=== PATIENT | female | born 1950 | race Hispanic/Latino ===

== ENCOUNTER → 2017-12-04 | Outpatient (CLI) | payer OTHER ==
[~2017-12-04] MED LIST: ACETAMINOPHEN325 M1 PO; AMLODIPINE BESYL5 MG PO; ASPIRIN EC81 MG PO; ATORVASTATIN CA20 MG PO; Atorvastatin PO; BUSPIRONE HCL5 MG PO; CALCIUM CARBON500 MG PO; CEFUROXIME250 MG PO; ESIDRIX25 MG PO; FAMOTIDINE20 MG PO; FUROSEMIDE40 MG PO; GABAPENTIN300 MG PO; HUMULIN N100 UNITS/ SQ; HUMULIN R100 UNIT/2 SQ; IBUPROFEN400 MG PO; IPRAT-ALBUT 0.5-3 ML NEB; LISINOPRIL10 MG PO; LOPERAMIDE2 MG PO; MEGESTROL ACETA40 MG PO; METFORMIN HCL500 MG PO; METOPROLOL SUCC50 MG PO; METOPROLOL TART25 MG PO; METOPROLOL TART50 MG PO; METRONIDAZOLE500 MG PO; MIRTAZAPINE15 MG PO; MUCINEX DM ER1 EACH PO; Multivitamins/Minerals PO; NYAMYC15 GM TOP; ONDANSETRON4 MG/2 M1 IV; PEPCID20 MG PO; PROBIOTIC & AC1 EACH PO; QUESTRAN PACKET4 GM PO; SODIUM BICARBO650 MG PO; THIAMINE HCL100 MG PO; TRIAMCINOLONE A15 G3 TP; TYLENOL WITH C1 EACH PO; VANCOCIN HCL250 MG PO; VENELEX OINTMEN60 GM TP; VITAMIN C500 M1 PO; ZINC SULFATE220 M1 PO; ZOFRAN ODT4 MG PO; ZYVOX600 MG PO
[2017-12-09 07:56] LABS: ALBUMIN 2.7 g/dL (3.5-5.0); ALBUMIN/GLOBULIN RATIO 0.5 (0.8-2.0); ANION GAP 15.7 mmol/L (8-16); CALCIUM 9.4 mg/dL (8.4-10.2); CREATININE, SERUM 1.67 mg/dL (0.57-1.11); POTASSIUM 3.7 mmol/L (3.5-5.1)
[2017-12-09 07:58] LABS: HEMOGLOBIN 10.4 g/dL (12.0-16.0); RED BLOOD COUNT 3.39 x10e6/uL (3.6-5.1)
[2017-12-09 07:59] LABS: BASOPHILS % 0.5 % (0.0-1.0); EOSINOPHILS % 3.4 % (0.0-6.0); HEMATOCRIT 31.5 % (34.2-44.1); LYMPHOCYTES % 32.3 % (18.0-39.1); MEAN CORPUSCULAR HEMOGLOBIN 30.7 pg (28-32); MEAN CORPUSCULAR VOLUME 92.9 fL (81-99); MONOCYTES % 6.7 % (4.4-11.3); NEUTROPHILS % 56.7 % (38.7-80.0); PLATELET COUNT 438 x10e3/uL (140-360); RED CELL DISTRIBUTION WIDTH 16.8 % (11.7-14.4)
[2017-12-09 08:00] LABS: BASOPHILS # (AUTO) 0.1 (0.0-0.1); EOSINOPHILS # (AUTO) 0.5 (0.0-0.4); LYMPHOCYTES # (AUTO) 4.7 (1.0-3.2); NEUTROPHILS # (AUTO) 8.2 (2.1-6.9)
[2017-12-09 17:18] LABS: ANION GAP 18.8 mmol/L (8-16); CALCIUM 10.2 mg/dL (8.4-10.2); CREATININE, SERUM 1.44 mg/dL (0.57-1.11); POTASSIUM 3.8 mmol/L (3.5-5.1)
== END ==
LOC: NPA 17:00
PROVIDERS: ATTEND Internal Medicine
DX: Z02.89 Encounter for other administrative examinations (principal)
CPT/HCPCS: 36415; 80048; 80053; 85025

== ENCOUNTER → 2017-12-09 | Outpatient (CLI) | payer OTHER ==
[2017-12-16 15:16] LABS: ANION GAP 19.7 mmol/L (8-16); CALCIUM 9.8 mg/dL (8.4-10.2); CREATININE, SERUM 1.46 mg/dL (0.57-1.11); POTASSIUM 4.7 mmol/L (3.5-5.1)
== END ==
LOC: NPA 15:00
PROVIDERS: ATTEND Internal Medicine
DX: Z02.89 Encounter for other administrative examinations (principal)
CPT/HCPCS: 36415; 80048

== ENCOUNTER → 2017-12-19 | Outpatient (CLI) | payer OTHER | LOC: NPA 11:30 | PROVIDERS: ATTEND Internal Medicine | DX: Z02.89 Encounter for other administrative examinations (principal) ==

== ENCOUNTER → 2017-12-23 | Outpatient (CLI) | payer OTHER ==
[2017-12-23 16:54] LABS: BASOPHILS % 0.3 % (0.0-1.0); EOSINOPHILS # (AUTO) 0.7 (0.0-0.4); EOSINOPHILS % 5.3 % (0.0-6.0); HEMATOCRIT 31.3 % (34.2-44.1); HEMOGLOBIN 10.6 g/dL (12.0-16.0); MEAN CORPUSCULAR HEMOGLOBIN 31.5 pg (28-32); MEAN CORPUSCULAR HGB CONC 33.9 g/dL (31-35); MEAN CORPUSCULAR VOLUME 92.9 fL (81-99); MONOCYTES # (AUTO) 0.8 (0.2-0.8); MONOCYTES % 6.8 % (4.4-11.3); NEUTROPHILS # (AUTO) 5.9 (2.1-6.9); NEUTROPHILS % 47.4 % (38.7-80.0); PLATELET COUNT 341 x10e3/uL (140-360); RED BLOOD COUNT 3.37 x10e6/uL (3.6-5.1); RED CELL DISTRIBUTION WIDTH 15.2 % (11.7-14.4)
[2017-12-23 16:55] LABS: ANION GAP 17.8 mmol/L (8-16); CALCIUM 9.5 mg/dL (8.4-10.2); CREATININE, SERUM 1.62 mg/dL (0.57-1.11); POTASSIUM 3.8 mmol/L (3.5-5.1)
== END ==
LOC: NPA 13:54
PROVIDERS: ATTEND Internal Medicine
DX: Z02.89 Encounter for other administrative examinations (principal)
CPT/HCPCS: 36415; 80048; 85025

== ENCOUNTER → 2017-12-26 | Outpatient (CLI) | payer OTHER | LOC: NPA 17:00 | PROVIDERS: ATTEND Internal Medicine | DX: Z02.89 Encounter for other administrative examinations (principal) ==

== ENCOUNTER → 2017-12-30 | Outpatient (CLI) | payer OTHER ==
[2017-12-30 15:59] LABS: ANION GAP 15.7 mmol/L (8-16); CALCIUM 9.4 mg/dL (8.4-10.2); CREATININE, SERUM 1.7 mg/dL (0.57-1.11); POTASSIUM 3.7 mmol/L (3.5-5.1)
[2017-12-30 16:03] LABS: BASOPHILS % 0.3 % (0.0-1.0); EOSINOPHILS # (AUTO) 0.4 (0.0-0.4); EOSINOPHILS % 3.7 % (0.0-6.0); HEMOGLOBIN 10.7 g/dL (12.0-16.0); LYMPHOCYTES # (AUTO) 4.2 (1.0-3.2); MEAN CORPUSCULAR HEMOGLOBIN 31.8 pg (28-32); MEAN CORPUSCULAR HGB CONC 34.5 g/dL (31-35); MEAN CORPUSCULAR VOLUME 92.3 fL (81-99); MONOCYTES # (AUTO) 0.6 (0.2-0.8); MONOCYTES % 5.1 % (4.4-11.3); NEUTROPHILS # (AUTO) 6.7 (2.1-6.9); NEUTROPHILS % 55.7 % (38.7-80.0); PLATELET COUNT 372 x10e3/uL (140-360); RED BLOOD COUNT 3.36 x10e6/uL (3.6-5.1); RED CELL DISTRIBUTION WIDTH 14.5 % (11.7-14.4)
== END ==
LOC: NPA 12:30
PROVIDERS: ATTEND Internal Medicine
DX: Z02.9 Encounter for administrative examinations, unspecified (principal)
CPT/HCPCS: 36415; 80048; 85025

== ENCOUNTER → 2018-01-01 | Outpatient (CLI) | payer OTHER | LOC: NPA 10:18 | PROVIDERS: ATTEND Internal Medicine | DX: Z02.89 Encounter for other administrative examinations (principal) | CPT/HCPCS: 87493 ==

== ENCOUNTER → 2018-01-06 | Outpatient (CLI) | payer OTHER ==
[~2018-01-06] MED LIST changes: +CLOTRIMAZOLE15 GM TOP; +LACTULOSE20 GM/30 M PO; +LEXAPRO10 MG PO; +NOVOLOG100 UNIT/1; +TRAZODONE HCL50 MG PO; +TRIAMCINOLONE A15 G1; +basaglar SC
[2018-01-06 17:37] LABS: ANION GAP 16.3 mmol/L (8-16); CALCIUM 9.5 mg/dL (8.4-10.2); CREATININE, SERUM 1.49 mg/dL (0.57-1.11); POTASSIUM 4.3 mmol/L (3.5-5.1)
[2018-01-06 17:39] LABS: BASOPHILS # (AUTO) 0.1 (0.0-0.1); BASOPHILS % 0.5 % (0.0-1.0); EOSINOPHILS # (AUTO) 0.7 (0.0-0.4); EOSINOPHILS % 5.2 % (0.0-6.0); HEMATOCRIT 31.9 % (34.2-44.1); HEMOGLOBIN 10.8 g/dL (12.0-16.0); LYMPHOCYTES # (AUTO) 5.6 (1.0-3.2); LYMPHOCYTES % 40.2 % (18.0-39.1); MEAN CORPUSCULAR HEMOGLOBIN 31.9 pg (28-32); MEAN CORPUSCULAR HGB CONC 33.9 g/dL (31-35); MEAN CORPUSCULAR VOLUME 94.1 fL (81-99); MONOCYTES # (AUTO) 0.8 (0.2-0.8); MONOCYTES % 5.5 % (4.4-11.3); NEUTROPHILS # (AUTO) 6.7 (2.1-6.9); NEUTROPHILS % 48.1 % (38.7-80.0); PLATELET COUNT 438 x10e3/uL (140-360); RED BLOOD COUNT 3.39 x10e6/uL (3.6-5.1); RED CELL DISTRIBUTION WIDTH 14.2 % (11.7-14.4)
== END ==
LOC: NPA 11:30
PROVIDERS: ATTEND Internal Medicine
DX: Z02.89 Encounter for other administrative examinations (principal)
CPT/HCPCS: 36415; 80048; 85025

== ENCOUNTER → 2018-01-10 | Outpatient (CLI) | payer OTHER ==
[2018-01-10 15:21] LABS: BILIRUBIN,URINE NEGATIVE (NEGATIVE); CLARITY,URINE CLOUDY (CLEAR); COLOR,URINE YELLOW (YELLOW); KETONES,URINE NEGATIVE (NEGATIVE); LEUKOCYTE ESTERASE ,URINE 2+ (NEGATIVE); PROTEIN,URINE DIPSTICK 3+ (NEGATIVE); URINE UROBILINOGEN 0.2 mg/dL (0.2 - 1)
[2018-01-10 15:22] LABS: NITRITE,URINE POSITIVE (NEGATIVE)
[2018-01-10 15:23] LABS: BACTERIA,URINE MANY /HPF; RBC,URINE 0-5 /HPF (0-5)
[2018-01-10 15:24] LABS: EPITHELIAL CELLS,URINE RARE /LPF
== END ==
LOC: NPA 11:22
PROVIDERS: ATTEND Internal Medicine
DX: Z02.89 Encounter for other administrative examinations (principal)
CPT/HCPCS: 81001; 87086; 87186

== ENCOUNTER 2018-01-13 12:45 | Inpatient (IN) | payer MEDICARE ==
[~2018-01-13] VITALS: Ht 157.5 cm; Wt 90.3 kg
[~2018-01-13 12:45] MED LIST changes: -CLOTRIMAZOLE15 GM TOP; -FLUCONAZOL100 MG/50 IV; -Insulin Detemir SQ; -LACTULOSE20 GM/30 M PO; -LEXAPRO10 MG PO; -MAXIPIME1 GM IV; -MUCINEX600 MG PO; -MULTI-VITAMIN1 EACH PO; -Methylprednisolone Sod Succ IV; -NOVOLOG100 UNIT/1; -OSCAL-D PO; -TRAZODONE HCL50 MG PO; -TRIAMCINOLONE A15 G1; -TYLENOL # 31 EA PO; -VANCOMYCIN1 GM/250 M IV; -basaglar SC
--- OUTSIDE RECORDS SUMMARY | 2018-01-13 12:48 | XMS REPORT ---
Author Author [facility] Address Unknown Phone Unavailable Care Team Providers Care Machine Zipper Trimmer Name Role Phone LUIS WOODRUFF Unavailable Unavailable DANIEL DEE Unavailable Unavailable FRANCY BROCK Unavailable Unavailable Problems This patient has no known problems. Allergies, Adverse Reactions, Alerts This patient has no known allergies or adverse reactions. Medications This patient has no known medications. Results Test Description Test Time Test Comments Text Results Atomic Results Result Comments IR CONSULT [place] [address] Patient Name: FANTA LONGORIA MR #: [id number] : 1950 Age/Sex: 67/F Req # : [id number] Adm Physician: LUIS WOODRUFF MD Ordered by: RBYAN COTO MD Report #: [id number] Location: [facility] Room/Bed: [place] [address] Procedure: [id number] DX/IR CONSULT Exam Date: Exam Time: REPORT STATUS: Signed PROCEDURE: ULTRASOUND GUIDANCE FOR PROCEDURE COMPARISON: None. INDICATIONS: Renal Biopsy For BONNIE PROCEDURE: Refer to conclusion CONCLUSION: Refer to "BIOPSY RENAL" also from 11/05/2017 for full dictated report. Dictated by: Aneesh Gonsalez M.D. on 11/05/2017 at 12:46 Electronically approved by: Aneesh Gonsalez M.D. on 11/05/2017 at 12:46 Dictated By: ANEESH GONSALEZ MD 1246 Transcribed By: MAN on 11/05/17 1246 COPY TO: BRYAN COTO MD BIOPSY RENAL [place] [address] Patient Name: FANTA LONGORIA MR #: [id number] : 1950 Age/Sex: 67/F Req # : [id number] [facility] Physician: LUIS WOODRUFF MD Ordered by: BRYAN COTO MD Report #: [id number] Location: [facility] Room/Bed: [place] [address] Procedure: [id number] IR/BIOPSY RENAL Exam Date: Exam Time: REPORT STATUS: Signed PROCEDURE: BIOPSY RENAL COMPARISON: None. INDICATIONS: Renal Biopsy For BONNIE Preprocedure diagnosis: Acute kidney injury Post procedure diagnosis: Acute kidney injury Camp Advisor: Aneesh Gonsalez M.D. Sedation/anesthesia: Fentanyl 25 mcg intravenous, Versed 0.5 mg intravenous. The patient's heart rate and pulse oximetry were continuously monitored by the interventional radiology nurse. Blood pressure was monitored at 5 minute intervals. Complications: No immediate Estimate blood loss: Less than 10 cc Blood products administered: None Implants/grafts: None Specimens: Core biopsy specimens x3 Condition at completion of procedure: Stable Disposition: Radiology holding area Procedure in detail: Informed consent was obtained from the patient and documented in the medical record after discussion of risks and benefits. The patient was placed in the prone position on the sonographic table. Preliminary sonographic evaluation confirmed a suitable percutaneous approach to the right kidney. The right flank was then prepped and draped in standard sterile fashion. 1% lidocaine was infiltrated into the skin and subcutaneous tissues for local anesthesia. Then under continuous sonographic guidance, a 16 gauge needle guide was advanced into the right interpolar renal cortex. Subsequently, a total of 3 biopsy specimens were obtained using an 18 gauge, 2 cm throw core biopsy apparatus, with hardware supplies sales representative sonographic images archived. Specimens were submitted to on- site pathology personnel and presence of glomeruli was confirmed in the first specimen prior to obtaining additional specimens. At the conclusion of sampling a small amount of Gelfoam slurry was injected at the renal capsule and in the subcutaneous tract for augmentation of hemostasis. Manual compression was held x3 minutes. Sonographic evaluation at the conclusion of the procedure showed no evidence of perinephric hematoma. CONCLUSION: Successful ultrasound guided core biopsies of the right renal cortex in the setting of acute kidney injury. Dictated by: Aneesh Gonsalez M.D. on 11/05/2017 at 12:45 Electronically approved by: Aneesh Gonsalez M.D. on 11/05/2017 at 12:45 Dictated By: ANEESH GONSALEZ MD 1245 Transcribed By: MAN on 11/05/17 1245 COPY TO: BRYAN COTO MD US GUIDANCE FOR PROCEDURE [place] [address] Patient Name: FANTA LONGORIA MR #: [id number] : 1950 Age/Sex: 67/F Req #: [id number] Adm Physician: LUIS WOODRUFF MD Ordered by: BRYAN COTO MD Report #: [id number] Location: [facility] Room/Bed: [place] [address] Procedure: [id number] US/US GUIDANCE FOR PROCEDURE Exam Date: Exam Time: REPORT STATUS: Signed PROCEDURE: ULTRASOUND GUIDANCE FOR PROCEDURE COMPARISON: None. INDICATIONS: Renal Biopsy For BONNIE PROCEDURE: Refer to conclusion CONCLUSION: Refer to "BIOPSY RENAL" also from 11/05/2017 for full dictated report. Dictated by: Aneesh Gonsalez M.D. on 11/05/2017 at 12:46 Electronically approved by: Aneesh Gonsalez M.D. on 11/05/2017 at 12:46 Dictated By: ANEESH GONSALEZ MD 1246 Transcribed By: MAN on 11/05/17 1246 COPY TO: BRYAN COTO MD CHEST SINGLE (PORTABLE) [place] [address] Patient Name: FANTA LONGORIA MR #: [id number] : 1950 Age/Sex: 67/F Req #: [id number] Adm Physician: LUIS WOODRUFF MD Ordered by: AWA MAYBERRY Report #: [id number] Location: [facility] Room/Bed: [place] [address] Procedure: [id number] DX/CHEST SINGLE (PORTABLE) Exam Date: 11/01/17 Exam Time: 1000 REPORT STATUS: Signed PROCEDURE: CHEST SINGLE (PORTABLE) TECHNIQUE: Portable AP chest INDICATION: Fever; C. difficile infection COMPARISON: [facility], DX, CHEST SINGLE (PORTABLE), 10/30/2017, 12:36. FINDINGS: Bilateral interstitial opacity without focal airspace disease. Enlarged cardiac silhouette and central vasculature. Tunneled right internal jugular dialysis catheter with tips in the right atrium. Intact skeleton. CONCLUSION: Cardiomegaly with pulmonary edema. Dictated by: Jordon Nieto M.D. on 11/01/2017 at 10:35 Electronically approved by: Jordon Nieto M.D. on 11/01/2017 at 10:35 Dictated By: JORDON NIETO MD 1035 Transcribed By: MAN on 11/01/17 1035 COPY TO: AWA MAYBERRY SPECIAL PROCEDURE IN PERSONALIZED LIVING ASSISTANT [place] [address] Patient Name: FANTA LONGORIA MR #: [id number] : 1950 Age/Sex: 67/F Req #: [id number] Adm Physician: LUIS WOODRUFF MD Ordered by: BETHANY AYALA MD Report #: [id number] Location: [facility] Room/Bed: [place] [address] Procedure: [id number] IR/SPECIAL PROCEDURE IN PERSONALIZED LIVING ASSISTANT Exam Date: Exam Time: REPORT STATUS: Signed PROCEDURE: TUNNELED DIALYSIS CATHETER COMPARISON: None. INDICATIONS: End-stage liver disease. COMPLICATIONS: None. MEDICATIONS: None. BLOOD LOSS: Less than 2 cc. PROCEDURE: Focused sonographic evaluation of the right neck demonstrated patent and compressible right internal jugular vein. The right neck was prepped and draped in the usual sterile fashion. 1% lidocaine was infused into the subcutaneous tissues for local anesthesia. Utilizing direct sonographic guidance, a 21 gauge needle was advanced into the right internal jugular vein. The wire was advanced centrally and utilizing fluoroscopic guidance. An access sheath was placed over the wire to secure the vascular access. The wire was upsized to a 0.035 inch wire. The wire was advanced into the inferior vena cava for stability. 1% lidocaine was infused along the right upper chest wall. A skin wero was made with a #11 blade. The catheter was tunneled under the skin and out the vascular access site. Serial dilations were performed over the wire. A peel-away sheath was placed over the wire. The wire and inner stylet were removed. The catheter was placed within the peel-away sheath. The peel-away sheath was removed. The catheter tip was positioned within the right atrium utilizing fluoroscopic guidance. The catheter lumens demonstrated proper function with aspiration and flush of saline. The catheter lumens were flushed with sterile saline. The catheter was secured to the skin with 3-0 Ethilon suture. The venous access site was closed with Dermabond. Sterile dressings were applied. There were no immediate complications. The patient tolerated the procedure well. The patient was transferred to the post procedure area in stable unchanged condition for monitoring. CONCLUSION: Successful placement of a right internal jugular tunneled central venous hemodialysis catheter utilizing ultrasound and fluoroscopic guidance. Dictated by: Guille Field M.D. on 11/04/2017 at 17:31 Electronically approved by: Guille Field M.D. on 11/04/2017 at 17:31 Dictated By: GUILLE FIELD MD 1731 Transcribed By: MAN on 11/04/17 1731 COPY TO: BETHANY AYALA MD IR CONSULT [place] [address] Patient Name: FANTA LONGORIA MR #: [id number] : 1950 Age/Sex: 67/F Req # : [id number] Adm Physician: LUIS WOODRUFF MD Ordered by: BRYAN COTO MD Report #: [id number] Location: [facility] Room/Bed: [place] [address] Procedure: [id number] DX/IR CONSULT Exam Date: Exam Time: REPORT STATUS: Signed PROCEDURE: TUNNELED DIALYSIS CATHETER COMPARISON: None. INDICATIONS: End-stage liver disease. COMPLICATIONS: None. MEDICATIONS: None. BLOOD LOSS: Less than 2 cc. PROCEDURE: Focused sonographic evaluation of the right neck demonstrated patent and compressible right internal jugular vein. The right neck was prepped and draped in the usual sterile fashion. 1% lidocaine was infused into the subcutaneous tissues for local anesthesia. Utilizing direct sonographic guidance, a 21 gauge needle was advanced into the right internal jugular vein. The wire was advanced centrally and utilizing fluoroscopic guidance. An access sheath was placed over the wire to secure the vascular access. The wire was upsized to a 0.035 inch wire. The wire was advanced into the inferior vena cava for stability. 1% lidocaine was infused along the right upper chest wall. A skin wero was made with a #11 blade. The catheter was tunneled under the skin and out the vascular access site. Serial dilations were performed over the wire. A peel-away sheath was placed over the wire. The wire and inner stylet were removed. The catheter was placed within the peel-away sheath. The peel-away sheath was removed. The catheter tip was positioned within the right atrium utilizing fluoroscopic guidance. The catheter lumens demonstrated proper function with aspiration and flush of saline. The catheter lumens were flushed with sterile saline. The catheter was secured to the skin with 3-0 Ethilon suture. The venous access site was closed with Dermabond. Sterile dressings were applied. There were no immediate complications. The patient tolerated the procedure well. The patient was transferred to the post procedure area in stable unchanged condition for monitoring. CONCLUSION: Successful placement of a right internal jugular tunneled central venous hemodialysis catheter utilizing ultrasound and fluoroscopic guidance. Dictated by: Guille Field M.D. on 11/04/2017 at 17:31 Electronically approved by: Guille Field M.D. on 11/04/2017 at 17:31 Dictated By: GUILLE FIELD MD 30 Transcribed By: MAN on 11/04/171730 COPY TO: BRYAN COTO MD [facility] [place] [address] Patient Name: FANTA LONGORIA MR #: [id number] : 1950 Age/Sex: 67/F Req #: [id number] Adm Physician: LUIS WOODRUFF MD Ordered by: TUAN WETZEL MD Report #: [id number] Location: [facility] Room/Bed: [facility] Procedure: [id number] DX/CHEST SINGLE (PORTABLE) Exam Date: 10/30/17 Exam Time: 1240 REPORT STATUS: Signed PROCEDURE: CHEST SINGLE (PORTABLE) COMPARISON: 10/28/2017 chest x- ray INDICATIONS: DEHYDRATION, SEPSIS FINDINGS: LUNGS: Mild pulmonary vascular congestion. Left basilar subsegmental atelectasis. PLEURA: No effusions or pneumothorax. HEART T MEDIASTINUM: The heart is enlarged. BONES T SOFT TISSUES: No acute findings. CONCLUSION: Cardiac enlargement with mild central pulmonary vascular congestion. Arben Mobley D.O. Dictated by: Arben Mobley D.O. on 10/30/2017 at 13:05 Electronically approved by: Arben Mobley D.O. on 10/30/2017 at 13:05 Dictated By: ARBEN MOBLEY DO 1305 Transcribed By: MAN on 10/30/17 1305 COPY TO: TUAN WETZEL MD RENAL RETROPERITONEAL COMP [address] [address] Patient Name: FANTA LONGORIA MR #: [id number] : 1950 Age/Sex: 67/F Req #: [id number] Adm Physician: LUIS WOODRUFF MD Ordered by: BRYAN COTO MD Report #: [id number] Location: MED/SURG2 Room/Bed: 200- 1 Procedure: [id number] US/US RENAL RETROPERITONEAL COMP Exam Date: 10/29/17 Exam Time: 1426 REPORT STATUS: Signed PROCEDURE: US RETROPERITONEAL ( KIDNEY ). COMPARISON: None. INDICATIONS: BONNIE TECHNIQUE: Arteaga-scale and color sonographic images of the bilateral kidneys and bladder where obtained in transverse and longitudinal planes. FINDINGS: Evaluation of the left kidney is limited by patient's large body habitus and overlying bowel gas. RIGHT KIDNEY: 10.5 cm, cortex 1.8 cm Cysts: None Solid masses: None Stones: None Hydronephrosis: None Echogenicity: Normal LEFT KIDNEY : 10.2 cm, cortex 1.2 cm Cysts: None Solid masses: None Stones: None Hydronephrosis: None Echogenicity: Normal Bladder: Decompressed, with Colon catheter in place. CONCLUSION: 1. Limited evaluation of the left kidney do to overlying bowel gas and patient's body habitus. 2. Despite the limitations, normal bilateral renal size, and echogenicity, without hydronephrosis, stones, or solid masses. Ramiro Yan M.D. Dictated by: Ramiro Yan M.D. on 10/29/2017 at 15:33 Electronically approved by: Ramiro Yan M.D. on 10/29/2017 at 15:33 Dictated By: RAMIRO YAN MD 1533 Transcribed By: MAN on 10/29/17 1533 COPY TO: BRYAN COTO MD [facility] (PORTABLE) [place] [address] Patient Name: FANTA LONGORIA MR #: [id number] : 1950 Age/Sex: 67/F Req #: [id number] Adm Physician: Ordered by: DANIEL DEE MD Report #: [id number] Location: ER Room/Bed: Procedure: [id number] DX/CHEST SINGLE (PORTABLE) Exam Date: 10/28/17 Exam Time: 1720 REPORT STATUS: Signed PROCEDURE: CHEST SINGLE (PORTABLE) TECHNIQUE: Portable AP chest INDICATION: Abnormal labs COMPARISON: None. FINDINGS: Ill-defined air space opacity in the left lower lobe. Right lung is clear. Mild left hemidiaphragm elevation. Upper limits of normal heart size, with mild central vascular prominence likely secondary to technique. Intact skeleton. CONCLUSION: Left lower lobe subsegmental atelectasis or, less likely, developing pneumonia. Dictated by: Jordon Nieto M.D. on 10/28/2017 at 17:38 Electronically approved by: Jordon Nieto M.D. on 10/28/2017 at 17:38 Dictated By: JORDON NIETO MD 37 Transcribed By: MAN on 10/28/171737 COPY TO: DANIEL DEE MD ANKLE 3 + VIEWS RIGHT [place] [address] Patient Name: FANTA LONGORIA MR #: [id number] : 1950 Age/Sex: 67/F Req #: [id number] Adm Physician: Ordered by: DANIEL DEE MD Report #: [id number] Location: ER Room/Bed: Procedure: [id number] DX/ANKLE 3 + VIEWS RIGHT Exam Date: 09/23/17 Exam Time: 1030 REPORT STATUS: Signed PROCEDURE: X- RAY RIGHT ANKLE, COMPLETE TECHNIQUE: INDICATION: Pain. COMPARISON: None. FINDINGS: Focal lucency is present in the inferior aspect of the medial malleolus, best visualized on the oblique projection. No acute displaced fracture or dislocation. Bone mineralization is within normal limits. Atherosclerotic calcifications. Calcaneal spur. Prominent soft tissues may represent body habitus. CONCLUSION: Focal lucency in the medial malleolus may represent a nondisplaced fracture. Correlate with focal tenderness for the need of additional imaging. Dictated by: Guille Field M.D. on 09/23/2017 at 11:48 Electronically approved by: Guille Field M.D. on 09/23/2017 at 11:48 Dictated By: GUILLE FIELD MD 1148 Transcribed By: MAN on 09/23/17 1148 COPY TO: DANIEL DEE MD [facility] (PORTABLE) [place] [address] Patient Name: FANTA LONGORIA MR #: [id number] : 1950 Age/Sex: 67/F Req #: [id number] Adm Physician: Ordered by: DANIEL DEE MD Report #: [id number] Location: ER Room/Bed: Procedure: [id number] DX/CHEST SINGLE (PORTABLE) Exam Date: 09/23/17 Exam Time: 914 REPORT STATUS: Signed PROCEDURE: A single AP view of the chest. COMPARISON: Portable chest 09/10/2017. INDICATIONS: FELL FINDINGS: Lines/tubes: None. Lungs: No parenchymal mass. Bilateral perihilar opacifications. Pleura: There is no pleural effusion or pneumothorax. Heart and mediastinum: The heart and the mediastinum are unremarkable. Bones: No acute bony abnormality. Degenerative changes of the thoracic spine. IMPRESSION: Bilateral perihilar opacifications may represent pulmonary edema. Dictated by: Guille Field M.D. on 09/23/2017 at 9:48 Electronically approved by: Guille Field M.D. on 09/23/2017 at 9:48 Dictated By : GIULLE FIELD MD Transcribed By: MAN on 09/23/17947 COPY TO: DANIEL DEE MD CT BRAIN WO [place] [address] Patient Name: FANTA LONGORIA MR #: [id number] : 1950 Age/Sex: 67/F Req # : [id number] Adm Physician: Ordered by: DANIEL DEE MD Report #: [id number] Location: ER Room/Bed: Procedure: [id number] CT/CT BRAIN WO Exam Date: 09/23/17 Exam Time: 914 REPORT STATUS: Signed Exam: Head CT without contrast History: Trauma , fall Comparison studies: None Technique: Axial images were obtained from the skull base to the vertex. Coronal and sagittal images reconstructed from the axial data. Intravenous contrast: None Findings: Scalp: No abnormalities. Bones: No fractures, blastic or lytic lesions. Brain sulci : Mildly prominent. Ventricles: Normal in size and configuration. No hydrocephalus. Extra-axial spaces: No masses, no fluid collection. Parenchyma: No mass, acute hemorrhage or acute cortical vascular insults. A few scattered hypodensities in the supratentorial white matter are nonspecific but most compatible with chronic small vessel ischemic changes. Sellar/suprasellar region: No abnormalities. Craniocervical junction: Patent foramen magnum. No Chiari one malformation. Incidental findings: Atherosclerotic calcifications in the carotid siphons. IMPRESSION: No acute abnormalities. Chronic findings: 1. Mild age-appropriate generalized volume loss. 2. Mild microvascular ischemic changes. Signed by: Dr. Aneesh Licea M.D. on 09/23/2017 9:48 AM Dictated By: ANEESH LICEA MD 7 Transcribed By: ZAY on 09/23/17947 COPY TO: DANIEL DEE MD CHEST 2 VIEWS [place] [address] Patient Name: FANTA LONGORIA MR #: [id number] : 1950 Age/Sex: 67/F Req # : [id number] Adm Physician: FRANCY BROCK MD Ordered by: FRANCY BROCK MD Report #: [id number] Location: [facility] Room/Bed: [facility] Procedure: [id number] DX/CHEST 2 VIEWS Exam Date: 09/10/17 Exam Time: 0600 REPORT STATUS: Signed CHEST 2 VIEWS, Technique: CHEST 2 VIEWS Comparison: Follow-up pneumonia Clinical history: 09/07/2017 DISCUSSION: See impression. IMPRESSION: 1. Stable mild cardiomegaly with central vascular congestion. 2. Improved bibasilar opacities which could reflect resolving aspiration/infection. 3. No pleural effusion or pneumothorax. Signed by: Dr Fatuma Banks MD on 09/2017 6:23 AM Dictated By: FATUMA BANKS MD 2 Transcribed By: ZAY on 09/10/17622 COPY TO: FRANCY BROCK MD CHEST SINGLE (PORTABLE) [place] [address] Patient Name: FANTA LONGORIA MR #: [id number] : 1950 Age/Sex: 67/F Req #: [id number] Adm Physician: Ordered by: DIONISIO العراقي MD Report #: [id number] Location: ER Room/Bed: ___ Procedure: [id number] DX/CHEST SINGLE (PORTABLE) Exam Date: 09/07/17 Exam Time: 0550 REPORT STATUS: Signed EXAM: CHEST SINGLE (PORTABLE), AP 1 view DATE: 09/07/2017 5:22 AM Time stamp on exam : 0546 hours INDICATION: Cough, congestion for 3 days COMPARISON: None FINDINGS: LINES/TUBES: None LUNGS: Bibasilar airspace opacities. PLEURA: Possible small left pleural effusion. HEART AND MEDIASTINUM: Mild enlargement of the cardiomediastinal silhouette. BONES AND SOFT TISSUES: No acute findings. IMPRESSION: Findings likely represent multifocal pneumonia given history of cough and congestion. Signed by: Dr. Luis Moreno M.D. on 09/07/2017 6:16 AM Dictated By: LUIS MORENO MD 5 Transcribed By : ZAY on 09/07/17615 COPY TO: DIONISIO العراقي MD
[2018-01-13] MEDS ORDERED: SODIUM CHLORIDE 0.9% 1000ML 1,000 ML IV STA (14:30)
[2018-01-13 14:52] LABS: BASOPHILS # (AUTO) 0.1 (0.0-0.1); BASOPHILS % 0.3 % (0.0-1.0); EOSINOPHILS # (AUTO) 0.6 (0.0-0.4); EOSINOPHILS % 1.6 % (0.0-6.0); HEMATOCRIT 32.4 % (34.2-44.1); HEMOGLOBIN 10.8 g/dL (12.0-16.0); LYMPHOCYTES # (AUTO) 5.5 (1.0-3.2); LYMPHOCYTES % 15.6 % (18.0-39.1); MEAN CORPUSCULAR HGB CONC 33.3 g/dL (31-35); MEAN CORPUSCULAR VOLUME 95.9 fL (81-99); MONOCYTES # (AUTO) 1.7 (0.2-0.8); MONOCYTES % 4.8 % (4.4-11.3); NEUTROPHILS # (AUTO) 27.3 (2.1-6.9); PLATELET COUNT 417 x10e3/uL (140-360); RED BLOOD COUNT 3.38 x10e6/uL (3.6-5.1); RED CELL DISTRIBUTION WIDTH 14.7 % (11.7-14.4)
--- NOTE | 2018-01-13 14:56 | Diagnostic Imaging Report ---
PROCEDURE: CHEST SINGLE (PORTABLE) 1447 hrs. COMPARISON: Chest x-ray 11/01/17. INDICATIONS: RASH FINDINGS: LUNGS: No mass or infiltrate. Pulmonary vascular markings are normal. PLEURA: No effusions or pneumothorax. HEART \T\ MEDIASTINUM: The heart is normal in size. Mild aortic ectasia is stable. BONES \T\ SOFT TISSUES: No focal osseous lesions. Visualized soft tissues are unremarkable. MEDICAL DEVICES: A dual lumen venous catheter has been removed. CONCLUSION: No acute cardiopulmonary abnormality. Dictated by: Maricarmen Chery M.D. on 01/13/2018 at 15:05 Electronically approved by: Maricarmen Chery M.D. on 01/13/2018 at 15:05
[2018-01-13 15:11] LABS: ALBUMIN 2.5 g/dL (3.5-5.0); ALBUMIN/GLOBULIN RATIO 0.5 (0.8-2.0); ANION GAP 16.6 mmol/L (8-16); CALCIUM 9.2 mg/dL (8.4-10.2); CREATININE, SERUM 1.54 mg/dL (0.57-1.11); POTASSIUM 4.6 mmol/L (3.5-5.1)
[2018-01-13 15:16] LABS: BILIRUBIN,URINE NEGATIVE (NEGATIVE); COLOR,URINE YELLOW (YELLOW); KETONES,URINE NEGATIVE (NEGATIVE); LEUKOCYTE ESTERASE ,URINE NEGATIVE (NEGATIVE); URINE UROBILINOGEN 0.2 mg/dL (0.2 - 1)
[2018-01-13 15:23] LABS: CLARITY,URINE SL CLOUDY (CLEAR); NITRITE,URINE POSITIVE (NEGATIVE); PROTEIN,URINE DIPSTICK 2+ (NEGATIVE)
[2018-01-13 15:31] LABS: AMORPHOUS SEDIMENT,URINE MODERATE (FEW); BACTERIA,URINE MANY /HPF; EPITHELIAL CELLS,URINE FEW /LPF
[2018-01-13] MEDS ORDERED: VANCOMYCIN 1GM/NS 250 ML 250 ML IV STA (16:34)
[2018-01-13] MEDS ORDERED: LOPERAMIDE2 MG PO (16:35)
[2018-01-13] MEDS ORDERED: CLOTRIMAZOLE15 GM TOP (16:35)
[2018-01-13] MEDS ORDERED: FUROSEMIDE40 MG PO (16:35)
[2018-01-13] MEDS ORDERED: basaglar SC (16:35)
[2018-01-13] MEDS ORDERED: LEXAPRO10 MG PO (16:35)
[2018-01-13] MEDS ORDERED: NOVOLOG100 UNIT/1 (16:35)
[2018-01-13] MEDS ORDERED: TRIAMCINOLONE A15 G1 (16:35)
[2018-01-13] MEDS ORDERED: TRAZODONE HCL50 MG PO (16:35)
[2018-01-13] MEDS ORDERED: LACTULOSE20 GM/30 M PO (16:35)
[2018-01-13] MEDS ORDERED: GABAPENTIN300 MG PO (16:35)
[2018-01-13] MEDS ORDERED: DEXTROSE 50% SYRINGE 50 ML IV PRN (16:45)
[2018-01-13] MEDS ORDERED: ONDANSETRON HCL INJ 2 MG/ML VIAL IV PRN (16:45)
[2018-01-13] MEDS: CEFTRIAXONE SOD 1 GM VIAL IV SCH (17:06)
[2018-01-13] MEDS: SODIUM CHLORIDE 0.9% 1000ML 1,000 ML IV SCH (17:06)
[2018-01-13 17:19] LABS: EOSINOPHILS % (MANUAL) 2 % (0-7); LYMPHOCYTES % (MANUAL) 37 % (19-48); MONOCYTES % (MANUAL) 4 % (3.4-9.0); NEUTROPHILS % (MANUAL) 57 % (40-74); RBC MORPHOLOGY COMMENT NORMAL
[2018-01-13 17:20] LABS: PLATELET ESTIMATE SLIGHTLY INCREASED; PLATELET MORPHOLOGY COMMENT NORMAL
--- NOTE | 2018-01-13 17:47 | Consultation ---
DATE OF CONSULTATION: January 13, 2018 REASON FOR CONSULTATION: Cellulitis of the trunk and cellulitis of the lower extremity in a patient who has psoriasis and recent history of C. diff colitis. This patient is a pleasant 67-year-old female who has a history of psoriasis. Patient was recently in the hospital with C. diff. Patient was discharged home. She was doing good. She came in with redness and swelling of her skin. It started on the leg and spread all over. Patient is just not feeling well. Patient came to the emergency room where I was asked to see her on an urgent basis. ICU. Patient is currently comfortable and doing well. PAST MEDICAL HISTORY: Psoriasis. PAST SURGICAL HISTORY: She denies. ALLERGIES: NKA. SOCIAL HISTORY: There is no smoking, drug abuse or alcohol abuse. FAMILY HISTORY: Hypertension. REVIEW OF SYSTEMS HEENT: There is no headache, visual changes, hearing changes. GI: There is no nausea. No vomiting. No diarrhea. CARDIAC: There is no arrhythmia. NEURO: No seizure activity. SKIN: There is a rash as mentioned above. PHYSICAL EXAMINATION GENERAL: She is currently alert and oriented. Does not seem to be in acute distress. VITALS: Stable. Currently afebrile. HEENT: She is not icteric. NECK: Supple. No JVD. No palpable thyromegaly. CHEST: Clear. Bilateral coarse. CORE: S1 and S2. ABDOMEN: Soft. Positive for tenderness. EXTREMITIES: Patient did have significant erythema and edema noted all over her body in the front and lower extremities. LABORATORY DATA: Reviewed. Her white count was 35,000. IMPRESSION 1. Severe cellulitis, perhaps early syphilis who has psoriasis. 2. History of Clostridium difficile recently. Will put her on vancomycin and Rocephin. Obtain wound cultures. Discussed with the ER physician. Will put her on oral vancomycin since she was recently in the hospital with C. diff colitis. Will recheck CBC. Recheck chem panel. Will give IV fluids. Can apply local calamine lotion. Will follow with you. Laboratory data reviewed. Chart reviewed. Medication list reviewed. Discussed with the patient. Discussed with the ER physician. Time spent 60 minutes. Job#: [id number] MS
[2018-01-13] MEDS: INSULIN REGULAR, HUMAN 100 UNIT/1 ML 3ML VIAL SQ SCH (20:56)
[2018-01-13 22:40] VITALS: BP 134/70
[2018-01-13 22:55] VITALS: BP 134/70
[2018-01-13 23:16] VITALS: BP 134/70
[2018-01-14] MEDS: SODIUM CHLORIDE 0.9% 1000ML 1,000 ML IV SCH ×4 (00:36→21:00)
[2018-01-14] MEDS: MORPHINE SULFATE 2 MG/ML SYR IV PRN ×2 (02:05→16:20)
[2018-01-14 02:07] VITALS: BP 107/42
[2018-01-14] MEDS ORDERED: VANCOMYCIN 1GM/NS 250 ML 250 ML IV SCH (05:00)
[2018-01-14 05:05] VITALS: BP 115/50
[2018-01-14] MEDS: CEFTRIAXONE SOD 1 GM VIAL IV SCH (05:07)
[2018-01-14] MEDS ORDERED: MIRTAZAPINE 15 MG TAB PO PRN (06:15)
[2018-01-14 06:21] LABS: BASOPHILS # (AUTO) 0.1 (0.0-0.1); BASOPHILS % 0.3 % (0.0-1.0); EOSINOPHILS # (AUTO) 0.5 (0.0-0.4); EOSINOPHILS % 1.4 % (0.0-6.0); HEMATOCRIT 28.9 % (34.2-44.1); HEMOGLOBIN 9.6 g/dL (12.0-16.0); LYMPHOCYTES # (AUTO) 4.6 (1.0-3.2); LYMPHOCYTES % 13.8 % (18.0-39.1); MEAN CORPUSCULAR HEMOGLOBIN 31.8 pg (28-32); MEAN CORPUSCULAR HGB CONC 33.2 g/dL (31-35); MEAN CORPUSCULAR VOLUME 95.7 fL (81-99); MONOCYTES # (AUTO) 1.6 (0.2-0.8); MONOCYTES % 4.9 % (4.4-11.3); NEUTROPHILS # (AUTO) 26.2 (2.1-6.9); NEUTROPHILS % 78.2 % (38.7-80.0); PLATELET COUNT 398 x10e3/uL (140-360); RED BLOOD COUNT 3.02 x10e6/uL (3.6-5.1); RED CELL DISTRIBUTION WIDTH 14.7 % (11.7-14.4)
[2018-01-14 06:34] LABS: INR 1.37; PROTHROMBIN TIME 15.9 seconds (11.9-14.5)
[2018-01-14 06:35] LABS: PARTIAL THROMBOPLASTIN TIME 39.4 seconds (23.8-35.5)
[2018-01-14 06:46] LABS: ANION GAP 16.6 mmol/L (8-16); CALCIUM 8.6 mg/dL (8.4-10.2); CHOL/HDL RATIO 3.8 (3.0-3.6); CREATININE, SERUM 1.73 mg/dL (0.57-1.11); POTASSIUM 4.6 mmol/L (3.5-5.1)
[2018-01-14 07:15] VITALS: BP 136/60
[2018-01-14 07:36] VITALS: BP 136/60
[2018-01-14 07:49] LABS: ANISOCYTOSIS SLIGHT; BAND NEUTROPHILS % (MANUAL) 1 %; EOSINOPHILS % (MANUAL) 2 % (0-7); HYPOCHROMASIA SLIGHT; LYMPHOCYTES % (MANUAL) 10 % (19-48); MONOCYTES % (MANUAL) 1 % (3.4-9.0); NEUTROPHILS % (MANUAL) 84 % (40-74); PLATELET ESTIMATE ADEQUATE; PLATELET MORPHOLOGY COMMENT NORMAL; RBC MORPHOLOGY COMMENT NORMAL
[2018-01-14] MEDS: INSULIN REGULAR, HUMAN 100 UNIT/1 ML 3ML VIAL SQ SCH ×4 (08:00→21:13)
[2018-01-14] MEDS: FAMOTIDINE 20 MG TAB PO SCH (08:35)
[2018-01-14] MEDS: SODIUM BICARBONATE 650 MG TAB PO SCH ×2 (08:35→16:38)
[2018-01-14] MEDS: ESCITALOPRAM OXALATE 10 MG TAB PO SCH (08:35)
[2018-01-14] MEDS: METOPROLOL TARTRATE 25 MG TAB PO SCH ×2 (08:35→16:38)
[2018-01-14] MEDS: NYSTATIN 15 GM POWDER UD BTL TOP SCH ×2 (08:35→16:38)
[2018-01-14] MEDS ORDERED: HEPARIN SOD (PORCINE) 5,000 UNIT/ML VIAL SC SCH (09:00)
[2018-01-14] MEDS ORDERED: GABAPENTIN 300 MG CAP PO SCH (09:00)
[2018-01-14] MEDS ORDERED: MEGESTROL ACETATE 40 MG TAB PO SCH (09:00)
[2018-01-14] MEDS ORDERED: LIDOCAINE HCL 2% LOCAL 20 ML VIAL INJ ONE (10:30)
--- NOTE | 2018-01-14 11:04 | History and Physical ---
PRIMARY CARE PHYSICIAN: Dr. Garay CHIEF COMPLAINT: Skin rash. HISTORY OF PRESENT ILLNESS: A 67-year-old woman with a history of obesity and diabetes mellitus, type 2, history of C. difficile colitis, unclear as to how long she has been treated for C. diff and whether she is still on therapy. On Saturday, she developed a skin rash that started on her arms and spread throughout her body with scaling, redness, tenderness, and edema. Therefore, she came to the hospital. Here she was found to have diffuse skin rash. She was started on antibiotics. White blood cell over 30,000. She was admitted for further evaluation and management. PAST MEDICAL HISTORY: Hyperlipidemia, anxiety/depression, obesity, diabetes mellitus, type 2, C. difficile colitis, urinary tract infection, sepsis due to C. diff colitis, sacral wound, metabolic encephalopathy, psoriasis. PAST SURGICAL HISTORY: Hysterectomy. ALLERGIES: PER ELECTRONIC MEDICAL RECORDS. FAMILY HISTORY/SOCIAL HISTORY: Patient is . She has 1 child. Occasional alcohol. No cigarettes. No illicits. Patient is a resident at [facility]. MEDICATIONS: Per electronic medical record. REVIEW OF SYSTEMS: Denies any dizziness or chest pain. PHYSICAL EXAMINATION VITAL SIGNS: Reviewed. GENERAL: A tired-appearing woman resting in bed. HEENT: Anicteric. No oral lesions. Dry mucous membranes. CARDIOVASCULAR: Normal S1 and S2. LUNGS: Moderate breath sounds. ABDOMEN: Soft, nontender and nondistended. EXTREMITIES: No edema. SKIN: She has a diffuse rash with scaling, erythema, tenderness, warmth, and edema throughout the body with scaling on the chest wall, abdomen and back. The patient also has a sacral ulcer, stage 2. NEUROLOGICAL: Alert and oriented times 2. She moves all extremities. PSYCHIATRIC: Flat affect. LABS: Reviewed. MEDICATIONS: Reviewed. ASSESSMENT AND PLAN: A 67-year-old woman with: 1. Diffuse skin rash: Appears to be staphylococcus versus streptococcus. Infectious disease has already been consulted. The patient is on vancomycin and ceftriaxone. Will follow up cultures. Will also add topical treatment for the skin rash. The patient also has a history of psoriasis, which appears she does not have any oral lesions. 2. Acute kidney injury versus chronic kidney disease: She has had renal dysfunction in the past. Will monitor and re-evaluate. 3. Urinary tract infection: Continue ceftriaxone. Follow up cultures. 4. Obesity/diabetes mellitus, type 2: Will obtain a hemoglobin A1c and lipid panel. 5. Marked leukocytosis: Clostridium difficile testing has been ordered. Will add Flagyl empirically. 6. Normocytic anemia, moderate: Will follow. 7. Sacral ulcer, stage 2: Frequent turns and consult wound care. 8. Anxiety/depression: Restart home medications. 9. Anorexia: Continue Megace. 10. Hyperlipidemia: Continue statin. 11. Hypertension: Continue beta kori. 12. Dehydration: Will hold the Lasix at this time and reassess. The patient does have very dry mucous membranes. 13. Prophylaxis: Will use thromboembolic-deterrent hose. 14. Disposition: Follow up cultures. Continue antibiotics and local wound care. Job#: [id number] MESHA
--- NOTE | 2018-01-14 11:36 | Progress Note ---
DATE: January 14, 2018 PROCEDURE: Wound debridement. HISTORY OF PRESENT ILLNESS: This 67-year-old female patient was admitted with extensive rash, bullous and vesicular rash. General examination and vitals are stable. After explaining the procedure and obtaining consent, I injected 2% lidocaine. I took a punch biopsy using 4-mm punch curet. Four specimens were taken. Two were sent for biopsy, and 2 specimens were sent for immunofluorescence to rule out pemphigus vulgaris. Job#: [id number]
[2018-01-14] MEDS: FLUCONAZOLE 100 MG/NS 50 ML 50 ML IV SCH (11:56)
--- NOTE | 2018-01-14 12:07 | Consultation ---
DATE OF CONSULTATION: January 14, 2018 WOUND CONSULTATION Thank you, Dr. Garay, for asking me to see this patient. HISTORY OF PRESENT ILLNESS: This 67-year-old female patient was brought to the emergency room with generalized rash. The patient says that she developed the rash yesterday. She started to develop redness and blisters to the abdomen, trunk, axilla, groin. She has a history of psoriasis. Denies using any medications. The patient has been in the skilled nursing rehabilitation center since September. She denies taking any new medications. However, she complains of chronic yeast rash under the breast and the groin for a long time. The patient also gives a history of itching. PAST MEDICAL HISTORY: Psoriasis, hypertension, hyperlipidemia, neuropathy, diabetes mellitus. MEDICATIONS 1. Vancomycin 250-mg capsule q.6 h. 2. Nystatin 15-g powder. 3. Lasix 80 mg twice daily. 4. Megace. 5. Sodium bicarbonate. 6. Gabapentin 300 mg twice a day. 7. Atorvastatin 40 mg at bedtime. 8. BuSpar 5 mg daily. 9. Metoprolol 25 mg twice a day. 10. Calcium carbonate. 11. Pepcid 20 mg daily. 12. Cholestyramine. 13. Thiamine 100 mg daily. 14. Loperamide. 15. Lexapro 10 mg daily. ALLERGIES: NONE. REVIEW OF SYSTEMS: All other systems reviewed and no complaints reported. PHYSICAL EXAMINATION VITALS: Blood pressure 115/50, pulse 84, temperature 98.9. HEENT: Exam is normal. SKIN: The patient has psoriasis to the scalp and also has candidal intertrigo to the neck, both axilla, groin. She has extensive vesicular bullous lesions to the abdomen, thigh, back, both elbows to the flexural area and to the neck and axilla with small flaccid vesicles and bulla. 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 She also has psoriatic lesions to the anterior knee. The patient is bedbound and weak. She has a stage-II pressure ulcer to the sacrococcygeal area and DTI. ASSESSMENT: Acute onset of sacral bullous lesions, mostly distributed to the flexural area around the elbow, neck, axilla, groin. 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 PLAN: Will do punch biopsy and immunofluorescence study. Consider Diflucan with steroid by ID. Will follow closely. Thank you for this consultation. Job#: [id number] LORENA
[2018-01-14] MEDS ORDERED: METHYLPREDNISOLONE SOD SUCC 40 MG/ML VIAL IV SCH (14:00)
[2018-01-14] MEDS: CEFEPIME HCL 1 GM VIAL IV SCH (14:12)
[2018-01-14] MEDS: METHYLPREDNISOLONE SOD SUCC 40 MG/ML VIAL IV SCH (14:12)
[2018-01-14] MEDS: GABAPENTIN 300 MG CAP PO SCH ×2 (14:12→21:00)
--- NOTE | 2018-01-14 14:42 | Consultation ---
DATE OF CONSULTATION: January 13, 2018 INFECTIOUS DISEASE CONSULTATION Patient was seen and examined January 13 in the emergency room. I do not see my consult; so, I dictated it again. HISTORY OF PRESENT ILLNESS: This is a patient who is a 67-year-old female, history of obesity, history of diabetes mellitus type 2, history of C. diff colitis recently. The patient comes in with redness and swelling involving her whole leg and her whole torso and her whole body, actually. The patient does have a history of psoriasis, but this is worse than usual. So, the patient was seen and examined, discussed with the ER physician. PAST MEDICAL HISTORY: Hyperlipidemia, anxiety/depression, obesity, diabetes mellitus type 2, C. diff colitis recently, UTI recently, psoriasis, metabolic encephalopathy. PAST SURGICAL HISTORY: Hysterectomy. ALLERGIES: NKA. SOCIAL HISTORY: There is no smoking, drug abuse, alcohol abuse. FAMILY HISTORY: Otherwise unremarkable. REVIEW OF SYSTEMS HEENT: There is no headache or visual changes, hearing changes. GENERALLY: She is just not feeling well, feverish. GI: There is no nausea, no vomiting, no diarrhea. CARDIAC: There is no arrhythmia. NEURO: No seizure activity. SKIN: There are rashes diffuse, erythematous, scaly all over. LABORATORY DATA: White count 33.5, hemoglobin 9.6, hematocrit 28. Her sodium 138, potassium 4.6, creatinine 1.73. PHYSICAL EXAMINATION GENERAL: She is currently alert, oriented, does not seem to be in acute distress. VITAL SIGNS: Stable. Currently afebrile. HEENT: She does not appear icteric. Normocephalic. NECK: Supple. CHEST: Clear bilaterally. HEART: S1 and S2. No S3 or S4, no murmur. ABDOMEN: Soft. Bowel sounds present. No tenderness. SKIN: She has diffuse erythema, diffuse edema, but there is no involvement of the mucosal area. The skin is erythematous, indurated, and scaly and peeling off. IMPRESSION 1. I think the patient has cellulitis/erysipelas superimposing psoriasis. The bacteria could be gram-positive, especially strep or maybe staph. However, gram-negative could not be ruled out. Will discuss with the ER physician. Will put her on vancomycin and Rocephin. 2. Will adjust for kidney function. May benefit from low dose of steroid. Apply calamine lotion to the skin. Further recommendations to follow. 3. For history of Clostridium difficile, will put her on vancomycin and see what happens. 4. Recently acute tubular necrosis/chronic kidney disease, would benefit from gentle hydration of fluid. 5. Will need supportive care. Will follow with you. Job#: [id number] EV
--- NOTE | 2018-01-14 15:43 | Discharge Summary ---
NO DICTATION, length 0 minutes 13 seconds. ROSA RAZO MD Job#: [id number] EV
[2018-01-14] MEDS: BALSAM PERU/CASTOR OIL 60 GM OINT...G. TP SCH (16:38)
[2018-01-14] MEDS: APIXAB 2.5 MG TABLET PO SCH (16:38)
[2018-01-14 20:30] VITALS: BP 128/53
[2018-01-14] MEDS: ATORVASTATIN 40 MG TAB PO SCH (21:00)
[2018-01-15] VITALS: BP 116/39
[2018-01-15] MEDS: TRAZODONE HCL 50 MG TAB PO SCH ×2 (00:15→20:40)
[2018-01-15] MEDS: CEFEPIME HCL 1 GM VIAL IV SCH ×2 (02:45→14:37)
[2018-01-15] MEDS: SODIUM CHLORIDE 0.9% 1000ML 1,000 ML IV SCH (04:45)
[2018-01-15 05:30] VITALS: BP 129/65
[2018-01-15] MEDS: VANCOMYCIN 1GM/NS 250 ML 250 ML IV SCH (05:50)
[2018-01-15] MEDS: GABAPENTIN 300 MG CAP PO SCH ×2 (05:50→14:30)
[2018-01-15 06:29] LABS: BASOPHILS # (AUTO) 0.1 (0.0-0.1); BASOPHILS % 0.2 % (0.0-1.0); HEMATOCRIT 28.7 % (34.2-44.1); HEMOGLOBIN 9.4 g/dL (12.0-16.0); LYMPHOCYTES # (AUTO) 2.6 (1.0-3.2); LYMPHOCYTES % 8.9 % (18.0-39.1); MEAN CORPUSCULAR HGB CONC 32.8 g/dL (31-35); MEAN CORPUSCULAR VOLUME 94.7 fL (81-99); MONOCYTES # (AUTO) 0.6 (0.2-0.8); MONOCYTES % 1.9 % (4.4-11.3); NEUTROPHILS # (AUTO) 25.6 (2.1-6.9); NEUTROPHILS % 87.5 % (38.7-80.0); PLATELET COUNT 363 x10e3/uL (140-360); RED BLOOD COUNT 3.03 x10e6/uL (3.6-5.1); RED CELL DISTRIBUTION WIDTH 14.2 % (11.7-14.4)
[2018-01-15 06:57] LABS: ALBUMIN 1.9 g/dL (3.5-5.0); ALBUMIN/GLOBULIN RATIO 0.4 (0.8-2.0); ANION GAP 13.6 mmol/L (8-16); CALCIUM 8.9 mg/dL (8.4-10.2); CREATININE, SERUM 1.54 mg/dL (0.57-1.11); MAGNESIUM 1.7 MG/DL (1.3-2.1); POTASSIUM 4.6 mmol/L (3.5-5.1)
[2018-01-15 07:00] VITALS: BP 138/49
[2018-01-15] MEDS: INSULIN REGULAR, HUMAN 100 UNIT/1 ML 3ML VIAL SQ SCH ×4 (07:30→20:41)
[2018-01-15] MEDS: ESCITALOPRAM OXALATE 10 MG TAB PO SCH (08:25)
[2018-01-15] MEDS: METOPROLOL TARTRATE 25 MG TAB PO SCH ×2 (08:25→17:00)
[2018-01-15] MEDS: APIXAB 2.5 MG TABLET PO SCH ×2 (08:25→17:00)
[2018-01-15] MEDS: FAMOTIDINE 20 MG TAB PO SCH (08:25)
[2018-01-15] MEDS: SODIUM BICARBONATE 650 MG TAB PO SCH ×2 (08:25→17:00)
[2018-01-15] MEDS: NYSTATIN 15 GM POWDER UD BTL TOP SCH ×2 (09:00→17:00)
[2018-01-15] MEDS: BALSAM PERU/CASTOR OIL 60 GM OINT...G. TP SCH ×2 (09:00→17:00)
[2018-01-15 11:00] VITALS: BP 126/47
[2018-01-15] MEDS: FLUCONAZOLE 100 MG/NS 50 ML 50 ML IV SCH (12:00)
[2018-01-15] MEDS: METHYLPREDNISOLONE SOD SUCC 40 MG/ML VIAL IV SCH (14:37)
[2018-01-15 16:00] VITALS: BP 150/61
[2018-01-15 20:00] VITALS: BP_SYST 140; BP_DIAS 56; BP_DIAS 59
[2018-01-15] MEDS: ATORVASTATIN 40 MG TAB PO SCH (20:40)
[2018-01-15] MEDS: ACETAMINOPHEN/CODEINE 300MG - 30MG TAB PO PRN (20:40)
[2018-01-15] MEDS: INSULIN DETEMIR 100 UNIT/ML PEN SQ SCH (20:41)
[2018-01-16] VITALS: BP_SYST 140; BP_SYST 148; BP_DIAS 49; BP_DIAS 56
[2018-01-16] MEDS: GABAPENTIN 300 MG CAP PO SCH ×4 (00:20→22:19)
[2018-01-16] MEDS: CEFEPIME HCL 1 GM VIAL IV SCH ×2 (02:03→16:05)
[2018-01-16 04:00] VITALS: BP 136/57
[2018-01-16] MEDS: SODIUM CHLORIDE 0.9% 1000ML 1,000 ML IV SCH (04:36)
[2018-01-16 06:19] LABS: BASOPHILS # (AUTO) 0.1 (0.0-0.1); BASOPHILS % 0.2 % (0.0-1.0); HEMATOCRIT 26.8 % (34.2-44.1); HEMOGLOBIN 8.7 g/dL (12.0-16.0); LYMPHOCYTES # (AUTO) 2.6 (1.0-3.2); LYMPHOCYTES % 9.2 % (18.0-39.1); MEAN CORPUSCULAR HEMOGLOBIN 31.5 pg (28-32); MEAN CORPUSCULAR HGB CONC 32.5 g/dL (31-35); MEAN CORPUSCULAR VOLUME 97.1 fL (81-99); MONOCYTES % 3.4 % (4.4-11.3); NEUTROPHILS # (AUTO) 24.4 (2.1-6.9); NEUTROPHILS % 85.7 % (38.7-80.0); PLATELET COUNT 350 x10e3/uL (140-360); RED BLOOD COUNT 2.76 x10e6/uL (3.6-5.1); RED CELL DISTRIBUTION WIDTH 14.2 % (11.7-14.4)
[2018-01-16] MEDS: VANCOMYCIN 1GM/NS 250 ML 250 ML IV SCH (06:20)
[2018-01-16 06:46] LABS: ALANINE AMINOTRANSFERASE 9 IU/L (0-55); ALBUMIN 1.8 g/dL (3.5-5.0); ALBUMIN/GLOBULIN RATIO 0.5 (0.8-2.0); ALKALINE PHOSPHATASE 91 IU/L (40-150); ANION GAP 13.2 mmol/L (8-16); BLOOD UREA NITROGEN 31 mg/dL (7-26); BUN/CREATININE RATIO 24 (6-25); CALCIUM 8.6 mg/dL (8.4-10.2); CARBON DIOXIDE 17 mmol/L (22-29); CHLORIDE 115 mmol/L (98-107); CREATININE, SERUM 1.28 mg/dL (0.57-1.11); EST GLOMERULAR FILTRATION RATE 41 ML/MIN (60-); GLUCOSE 199 mg/dL (74-118); POTASSIUM 4.2 mmol/L (3.5-5.1); SODIUM 141 mmol/L (136-145)
[2018-01-16 07:02] LABS: MAGNESIUM 1.5 MG/DL (1.3-2.1)
[2018-01-16] MEDS: INSULIN REGULAR, HUMAN 100 UNIT/1 ML 3ML VIAL SQ SCH ×4 (07:30→21:00)
[2018-01-16 07:56] LABS: ANISOCYTOSIS SLIGHT; HYPOCHROMASIA SLIGHT; LYMPHOCYTES % (MANUAL) 9 % (19-48); MONOCYTES % (MANUAL) 2 % (3.4-9.0); NEUTROPHILS % (MANUAL) 89 % (40-74)
[2018-01-16 07:57] LABS: PLATELET ESTIMATE ADEQUATE; PLATELET MORPHOLOGY COMMENT NORMAL; POIKILOCYTOSIS SLIGHT; RBC MORPHOLOGY COMMENT NORMAL
[2018-01-16 08:00] VITALS: BP 151/60
[2018-01-16] MEDS: APIXAB 2.5 MG TABLET PO SCH ×2 (09:33→16:49)
[2018-01-16] MEDS: ESCITALOPRAM OXALATE 10 MG TAB PO SCH (09:33)
[2018-01-16] MEDS: SODIUM BICARBONATE 650 MG TAB PO SCH ×2 (09:34→16:49)
[2018-01-16] MEDS: FAMOTIDINE 20 MG TAB PO SCH (09:34)
[2018-01-16] MEDS: BALSAM PERU/CASTOR OIL 60 GM OINT...G. TP SCH ×2 (09:34→16:15)
[2018-01-16] MEDS: NYSTATIN 15 GM POWDER UD BTL TOP SCH ×2 (09:34→16:15)
[2018-01-16] MEDS: METOPROLOL TARTRATE 25 MG TAB PO SCH ×2 (09:34→16:49)
[2018-01-16 12:08] VITALS: BP 126/58
[2018-01-16] MEDS: GUAIFENESIN 600 MG TAB PO SCH ×3 (14:52→22:19)
[2018-01-16] MEDS: FLUCONAZOLE 100 MG/NS 50 ML 50 ML IV SCH (14:52)
[2018-01-16] MEDS: METHYLPREDNISOLONE SOD SUCC 40 MG/ML VIAL IV SCH (16:05)
[2018-01-16] MEDS: ACETAMINOPHEN/CODEINE 300MG - 30MG TAB PO PRN (16:06)
[2018-01-16 16:23] VITALS: BP 132/60
[2018-01-16 19:42] VITALS: BP 126/69
[2018-01-16] MEDS: INSULIN DETEMIR 100 UNIT/ML PEN SQ SCH (21:00)
[2018-01-16] MEDS: TRAZODONE HCL 50 MG TAB PO SCH (22:19)
[2018-01-16] MEDS: ATORVASTATIN 40 MG TAB PO SCH (22:19)
[2018-01-17] MEDS: SODIUM CHLORIDE 0.9% 1000ML 1,000 ML IV SCH (00:33)
[2018-01-17 00:50] VITALS: BP 129/59
[2018-01-17] MEDS: CEFEPIME HCL 1 GM VIAL IV SCH ×2 (02:06→14:45)
[2018-01-17 03:07] VITALS: BP 129/59
[2018-01-17 04:00] VITALS: BP 140/63
[2018-01-17] MEDS: GABAPENTIN 300 MG CAP PO SCH ×2 (06:13→14:45)
[2018-01-17] MEDS: GUAIFENESIN 600 MG TAB PO SCH ×2 (06:13→11:55)
[2018-01-17 06:22] LABS: BASOPHILS # (AUTO) 0.1 (0.0-0.1); BASOPHILS % 0.2 % (0.0-1.0); HEMATOCRIT 27.1 % (34.2-44.1); HEMOGLOBIN 9.1 g/dL (12.0-16.0); LYMPHOCYTES # (AUTO) 3.2 (1.0-3.2); LYMPHOCYTES % 11.7 % (18.0-39.1); MEAN CORPUSCULAR HEMOGLOBIN 31.5 pg (28-32); MEAN CORPUSCULAR HGB CONC 33.6 g/dL (31-35); MEAN CORPUSCULAR VOLUME 93.8 fL (81-99); MONOCYTES # (AUTO) 1.1 (0.2-0.8); MONOCYTES % 4.1 % (4.4-11.3); NEUTROPHILS # (AUTO) 22.1 (2.1-6.9); NEUTROPHILS % 81.4 % (38.7-80.0); PLATELET COUNT 360 x10e3/uL (140-360); RED BLOOD COUNT 2.89 x10e6/uL (3.6-5.1); RED CELL DISTRIBUTION WIDTH 14.4 % (11.7-14.4)
[2018-01-17 07:02] LABS: ALANINE AMINOTRANSFERASE 10 IU/L (0-55); ALBUMIN/GLOBULIN RATIO 0.5 (0.8-2.0); ALKALINE PHOSPHATASE 80 IU/L (40-150); BLOOD UREA NITROGEN 28 mg/dL (7-26); BUN/CREATININE RATIO 23 (6-25); CALCIUM 8.6 mg/dL (8.4-10.2); CARBON DIOXIDE 20 mmol/L (22-29); CHLORIDE 115 mmol/L (98-107); CREATININE, SERUM 1.23 mg/dL (0.57-1.11); EST GLOMERULAR FILTRATION RATE 43 ML/MIN (60-); GLUCOSE 168 mg/dL (74-118); SODIUM 141 mmol/L (136-145)
[2018-01-17] MEDS: INSULIN REGULAR, HUMAN 100 UNIT/1 ML 3ML VIAL SQ SCH ×2 (07:45→11:30)
[2018-01-17 08:00] VITALS: BP 173/65
[2018-01-17 08:12] LABS: LYMPHOCYTES % (MANUAL) 16 % (19-48); METAMYELOCYTES % (MANUAL) 2 % (0-0); MONOCYTES % (MANUAL) 3 % (3.4-9.0); NEUTROPHILS % (MANUAL) 79 % (40-74)
[2018-01-17 08:13] LABS: ANISOCYTOSIS SLIGHT; HYPOCHROMASIA SLIGHT; PLATELET ESTIMATE ADEQUATE; PLATELET MORPHOLOGY COMMENT FEW LARGE; RBC MORPHOLOGY COMMENT NORMAL
[2018-01-17] MEDS: BALSAM PERU/CASTOR OIL 60 GM OINT...G. TP SCH (08:30)
[2018-01-17] MEDS: SODIUM BICARBONATE 650 MG TAB PO SCH (08:30)
[2018-01-17] MEDS: ESCITALOPRAM OXALATE 10 MG TAB PO SCH (08:30)
[2018-01-17] MEDS: METOPROLOL TARTRATE 25 MG TAB PO SCH (08:30)
[2018-01-17] MEDS: FAMOTIDINE 20 MG TAB PO SCH (08:30)
[2018-01-17] MEDS: APIXAB 2.5 MG TABLET PO SCH (08:30)
[2018-01-17] MEDS: NYSTATIN 15 GM POWDER UD BTL TOP SCH (08:30)
[2018-01-17] MEDS ORDERED: HUMULIN R100 UNIT/2 SQ (08:47)
[2018-01-17] MEDS ORDERED: TYLENOL # 31 EA PO (08:47)
[2018-01-17] MEDS ORDERED: MAXIPIME1 GM IV (08:47)
[2018-01-17] MEDS ORDERED: MULTI-VITAMIN1 EACH PO (08:47)
[2018-01-17] MEDS ORDERED: Methylprednisolone Sod Succ IV (08:47)
[2018-01-17] MEDS ORDERED: OSCAL-D PO (08:47)
[2018-01-17] MEDS ORDERED: FLUCONAZOL100 MG/50 IV (08:47)
[2018-01-17] MEDS ORDERED: Insulin Detemir SQ (08:47)
[2018-01-17] MEDS ORDERED: MUCINEX600 MG PO (08:47)
[2018-01-17] MEDS ORDERED: VANCOMYCIN1 GM/250 M IV (08:47)
[2018-01-17] MEDS: FLUCONAZOLE 100 MG/NS 50 ML 50 ML IV SCH (11:55)
[2018-01-17 12:00] VITALS: BP 188/77
[2018-01-17] MEDS: METHYLPREDNISOLONE SOD SUCC 40 MG/ML VIAL IV SCH (14:45)
--- NOTE | 2018-01-17 15:10 | Consultation ---
DATE OF CONSULTATION: RENAL CONSULTATION Thank you for the consultation. HISTORY OF PRESENT ILLNESS: Ms. Campos is a pleasant 67-year-old female with past medical history significant for diabetes mellitus type 2, history of C. diff colitis previously, history of hypertension, history of chronic kidney disease stage 3, hyperlipidemia, prior UTIs, metabolic encephalopathy. Came into the hospital with redness and swelling involving her whole leg and her whole torso and her whole body. She has a history of cirrhosis, but this was worse than what she typically gets from her cirrhosis. 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 The patient did have a creatinine of 1.7 on admission. That has started to improve to 1.28 to 1.3 mg/dl, which appears to be at her baseline CKD stage 3. Renal consultation has been asked for in the management of her renal insufficiency. Bicarb is better today at 20. Currently no fever, chills, nausea, vomiting, diarrhea. No abdominal pain. No dysuria, frequency or urgency of urination. No other symptoms. PAST MEDICAL HISTORY: As outlined above. ALLERGIES: NO KNOWN DRUG ALLERGIES. SOCIAL HISTORY: No tobacco, no alcohol use. FAMILY HISTORY: Noncontributory. REVIEW OF SYSTEMS: See HPI. Otherwise all systems negative. MEDICATIONS: Have been reviewed per chart. PHYSICAL EXAMINATION VITAL SIGNS: Blood pressure currently is 170s-180s/70, heart rate 72, afebrile. HEENT: No cervical lymphadenopathy. Neck supple without masses. No obvious JVD. Moist-appearing oral mucosa. SKIN: Appears to be moist with good skin turgor. There is a diffuse rash over her torso and lower extremities. CHEST WALL: Good expansion. No chest wall tenderness. LUNGS: Clear to auscultation bilaterally. CARDIOVASCULAR: S1 and S2. No obvious gallop, rub or murmur. ABDOMEN: Soft. Positive bowel sounds. Nontender. No organomegaly. EXTREMITIES: No evidence of lower extremity edema. No clubbing. No cyanosis. NEUROLOGICALLY: Awake, alert, oriented x3. Grossly otherwise nonfocal exam. LABORATORY WORKUP: Sodium is 141, potassium 4, chloride 115, bicarb 20, BUN 28, creatinine 1.23, estimated GFR is 43 mL per minute. Calcium 8.6. IMPRESSION AND PLAN 1. Chronic kidney disease stage 3. Patient appears to be at her baseline CKD stage 3. Will continue to monitor her kidney function closely. Continue to monitor over the weekend. Avoid potential nephrotoxic agents. Patient was on vancomycin, which has now been stopped. Patient is just on fluconazole once a day, and patient is also on normal saline. Otherwise, no potential nephrotoxic agents are being given. Cefepime is on board; however, that is renally dosed as well. Continue to monitor kidney function closely over the weekend. Repeat labs again in the morning including basic metabolic panel, mag phos, CBC. Get urine electrolytes. Make further recommendations. 2. Hypertension. Blood pressure is elevated. Patient's blood pressure medicines have been restarted. Recommend to titrate up blood pressure medications to achieve optimum control of blood pressure. Currently patient is on metoprolol 25 mg twice a day. I would recommend to increase the metoprolol to 50 mg twice a day and monitor blood pressure closely. 3. Metabolic acidosis. Continue oral sodium bicarbonate. Will continue to monitor closely over the weekend. 4. 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 ID is following the patient. Patient is on steroids and IV antibiotics. Will follow their recommendations. Thank you once again for the consultation. Will follow the patient closely with you and make further recommendations. BETHANY AYALA MD Job#: [id number] EV cc:LUIS WOODRUFF MD
[2018-01-17 15:49] VITALS: BP 176/86
[2018-01-17] MEDS ORDERED: METOPROLOL TARTRATE 50 MG TAB PO SCH (17:00)
[2018-01-17] MEDS ORDERED: METOPROLOL TARTRATE 25 MG TAB PO SCH (17:00)
--- NOTE | 2018-01-17 23:07 | Discharge Summary ---
ADMISSION DIAGNOSES 1. Diffuse skin rash. 2. Acute kidney injury versus chronic kidney disease. 3. Urinary tract infection. 4. Type 2 diabetes. 5. Leukocytosis. 6. Anemia. 7. Stage 2 sacral ulcer. 8. Anxiety/depression. 9. Anorexia. 10. Hyperlipidemia. 11. Hypertension. 12. Dehydration. DISCHARGE DIAGNOSES 1. Diffuse skin rash. 2. Acute kidney injury versus chronic kidney disease. 3. Urinary tract infection. 4. Type 2 diabetes. 5. Leukocytosis. 6. Anemia. 7. Stage 2 sacral ulcer. 8. Anxiety/depression. 9. Anorexia. 10. Hyperlipidemia. 11. Hypertension. 12. Dehydration. 13. Cellulitis with superimposing psoriasis. 14. Ruled out Clostridium difficile. HISTORY: Patient has a history of hyperlipidemia, anxiety/depression, obesity, diabetes type 2, C. diff colitis, UTI, sacral wound, metabolic encephalopathy, and psoriasis with a surgical history of hysterectomy. HOSPITAL COURSE: A 67-year-old female who lives in a senior living developed a skin rash that started on her arms and spread throughout her body with scaling, redness, tenderness and edema. She was brought to the hospital and started on antibiotics. Her white blood cell count was over 30,000. Patient was started on vancomycin and ceftriaxone, ID consulted and Wound Care consulted. Wound Care did a punch biopsy of the abdomen. Biopsy results were not in by the time of discharge. Patient was started on steroids as well. C. diff was negative. Urine culture found Klebsiella pneumoniae sensitive to cefepime. Drainage of the abdominal wound found Klebsiella pneumoniae, MRSA and enterococcus sensitive to cefepime and vancomycin. Antibiotics cefepime and vancomycin will be continued at transfer to [facility]. At time of transfer, patient was feeling better, vital signs stable, labs stable. Patient will continue on same meds at [place], and the same physicians will follow her there as well for long-term antibiotics, physical therapy and wound care. Dictated by: Francia Wang NP LUIS WOODRUFF MD Job#: [id number] EV
== END 2018-01-17 16:02 | DRG 872 ==
LOC: ER 12:45 → ERHOLD 20:16 → IMCU 20:52 → MED/SURG2 01-16 11:37
PROVIDERS: ADMIT Internal Medicine; ATTEND Internal Medicine
PROC: 0HB7XZX Excision of Abdomen Skin, External Approach, Diagnostic (ICD-10-PCS; principal; 2018-01-14)
DX: A41.9 Sepsis, unspecified organism (principal); L89.152 Pressure ulcer of sacral region, stage 2; N17.9 Acute kidney failure, unspecified; E87.2 Acidosis; E11.22 Type 2 diabetes mellitus with diabetic chronic kidney disease; N18.3 Chronic kidney disease, stage 3 (moderate); R63.0 Anorexia; L03.313 Cellulitis of chest wall; L03.113 Cellulitis of right upper limb; L03.312 Cellulitis of back [any part except buttock and flank]; L03.311 Cellulitis of abdominal wall; N30.00 Acute cystitis without hematuria; A46 Erysipelas; B95.5 Unspecified streptococcus as the cause of diseases classified elsewhere; I12.9 Hypertensive chronic kidney disease with stage 1 through stage 4 chronic kidney disease, or unspecified chronic kidney disease; E78.5 Hyperlipidemia, unspecified; B96.1 Klebsiella pneumoniae [K. pneumoniae] as the cause of diseases classified elsewhere; Z87.440 Personal history of urinary (tract) infections; F41.9 Anxiety disorder, unspecified; D64.9 Anemia, unspecified; B95.62 Methicillin resistant Staphylococcus aureus infection as the cause of diseases classified elsewhere; E66.9 Obesity, unspecified; Z68.36 Body mass index [BMI] 36.0-36.9, adult; E86.0 Dehydration; L40.9 Psoriasis, unspecified; B95.2 Enterococcus as the cause of diseases classified elsewhere; R23.8 Other skin changes
CPT/HCPCS: 36415; 71045; 80048; 80053; 80061; 80202; 81001; 82270; 82948; 83036; 83605; 83735; 85025; 85610; 85730; 87040; 87070; 87071; 87086; 87186; 87205; 87493; 96372; 97139; 99285; J0692; J0696; J1450; J1644; J2001; J2270; J2920; J3370; J7030

== ENCOUNTER → 2018-01-13 | Outpatient (CLI) | payer OTHER ==
[~2018-01-13] MED LIST changes: +FLUCONAZOL100 MG/50 IV; +Insulin Detemir SQ; +MAXIPIME1 GM IV; +MUCINEX600 MG PO; +MULTI-VITAMIN1 EACH PO; +Methylprednisolone Sod Succ IV; +OSCAL-D PO; +TYLENOL # 31 EA PO; +VANCOMYCIN1 GM/250 M IV
--- NOTE | 2018-01-13 17:47 | Consultation ---
DATE OF CONSULTATION: January 13, 2018 REASON FOR CONSULTATION: Cellulitis of the trunk and cellulitis of the lower extremity in a patient who has psoriasis and recent history of C. diff colitis. This patient is a pleasant 67-year-old female who has a history of psoriasis. Patient was recently in the hospital with C. diff. Patient was discharged home. She was doing good. She came in with redness and swelling of her skin. It started on the leg and spread all over. Patient is just not feeling well. Patient came to the emergency room where I was asked to see her on an urgent basis. ICU. Patient is currently comfortable and doing well. PAST MEDICAL HISTORY: Psoriasis. PAST SURGICAL HISTORY: She denies. ALLERGIES: NKA. SOCIAL HISTORY: There is no smoking, drug abuse or alcohol abuse. FAMILY HISTORY: Hypertension. REVIEW OF SYSTEMS HEENT: There is no headache, visual changes, hearing changes. GI: There is no nausea. No vomiting. No diarrhea. CARDIAC: There is no arrhythmia. NEURO: No seizure activity. SKIN: There is a rash as mentioned above. PHYSICAL EXAMINATION GENERAL: She is currently alert and oriented. Does not seem to be in acute distress. VITALS: Stable. Currently afebrile. HEENT: She is not icteric. NECK: Supple. No JVD. No palpable thyromegaly. CHEST: Clear. Bilateral coarse. CORE: S1 and S2. ABDOMEN: Soft. Positive for tenderness. EXTREMITIES: Patient did have significant erythema and edema noted all over her body in the front and lower extremities. LABORATORY DATA: Reviewed. Her white count was 35,000. IMPRESSION 1. Severe cellulitis, perhaps early syphilis who has psoriasis. 2. History of Clostridium difficile recently. Will put her on vancomycin and Rocephin. Obtain wound cultures. Discussed with the ER physician. Will put her on oral vancomycin since she was recently in the hospital with C. diff colitis. Will recheck CBC. Recheck chem panel. Will give IV fluids. Can apply local calamine lotion. Will follow with you. Laboratory data reviewed. Chart reviewed. Medication list reviewed. Discussed with the patient. Discussed with the ER physician. Time spent 60 minutes. Job#: [id number] [place]
--- NOTE | 2018-01-14 11:04 | History and Physical ---
PRIMARY CARE PHYSICIAN: Dr. Garay CHIEF COMPLAINT: Skin rash. HISTORY OF PRESENT ILLNESS: A 67-year-old woman with a history of obesity and diabetes mellitus, type 2, history of C. difficile colitis, unclear as to how long she has been treated for C. diff and whether she is still on therapy. On Saturday, she developed a skin rash that started on her arms and spread throughout her body with scaling, redness, tenderness, and edema. Therefore, she came to the hospital. Here she was found to have diffuse skin rash. She was started on antibiotics. White blood cell over 30,000. She was admitted for further evaluation and management. PAST MEDICAL HISTORY: Hyperlipidemia, anxiety/depression, obesity, diabetes mellitus, type 2, C. difficile colitis, urinary tract infection, sepsis due to C. diff colitis, sacral wound, metabolic encephalopathy, psoriasis. PAST SURGICAL HISTORY: Hysterectomy. ALLERGIES: PER ELECTRONIC MEDICAL RECORDS. FAMILY HISTORY/SOCIAL HISTORY: Patient is . She has 1 child. Occasional alcohol. No cigarettes. No illicits. Patient is a resident at [facility]. MEDICATIONS: Per electronic medical record. REVIEW OF SYSTEMS: Denies any dizziness or chest pain. PHYSICAL EXAMINATION VITAL SIGNS: Reviewed. GENERAL: A tired-appearing woman resting in bed. HEENT: Anicteric. No oral lesions. Dry mucous membranes. CARDIOVASCULAR: Normal S1 and S2. LUNGS: Moderate breath sounds. ABDOMEN: Soft, nontender and nondistended. EXTREMITIES: No edema. SKIN: She has a diffuse rash with scaling, erythema, tenderness, warmth, and edema throughout the body with scaling on the chest wall, abdomen and back. The patient also has a sacral ulcer, stage 2. NEUROLOGICAL: Alert and oriented times 2. She moves all extremities. PSYCHIATRIC: Flat affect. LABS: Reviewed. MEDICATIONS: Reviewed. ASSESSMENT AND PLAN: A 67-year-old woman with: 1. Diffuse skin rash: Appears to be staphylococcus versus streptococcus. Infectious disease has already been consulted. The patient is on vancomycin and ceftriaxone. Will follow up cultures. Will also add topical treatment for the skin rash. The patient also has a history of psoriasis, which appears she does not have any oral lesions. 2. Acute kidney injury versus chronic kidney disease: She has had renal dysfunction in the past. Will monitor and re-evaluate. 3. Urinary tract infection: Continue ceftriaxone. Follow up cultures. 4. Obesity/diabetes mellitus, type 2: Will obtain a hemoglobin A1c and lipid panel. 5. Marked leukocytosis: Clostridium difficile testing has been ordered. Will add Flagyl empirically. 6. Normocytic anemia, moderate: Will follow. 7. Sacral ulcer, stage 2: Frequent turns and consult wound care. 8. Anxiety/depression: Restart home medications. 9. Anorexia: Continue Megace. 10. Hyperlipidemia: Continue statin. 11. Hypertension: Continue beta kori. 12. Dehydration: Will hold the Lasix at this time and reassess. The patient does have very dry mucous membranes. 13. Prophylaxis: Will use thromboembolic-deterrent hose. 14. Disposition: Follow up cultures. Continue antibiotics and local wound care. Job#: [id number] MESHA
--- NOTE | 2018-01-14 12:07 | Consultation ---
DATE OF CONSULTATION: WOUND CONSULTATION Thank you, Dr. Garay, for asking me to see this patient. HISTORY OF PRESENT ILLNESS: This 67-year-old female patient was brought to the emergency room with generalized rash. The patient says that she developed the rash yesterday. She started to develop redness and blisters to the abdomen, trunk, axilla, groin. She has a history of psoriasis. Denies using any medications. The patient [facility]. She denies taking any new medications. However, she complains of chronic yeast rash under the breast and the groin for a long time. The patient also gives a history of itching. PAST MEDICAL HISTORY: Psoriasis, hypertension, hyperlipidemia, neuropathy, diabetes mellitus. MEDICATIONS 1. Vancomycin 250-mg capsule q.6 h. 2. Nystatin 15-g powder. 3. Lasix 80 mg twice daily. 4. Megace. 5. Sodium bicarbonate. 6. Gabapentin 300 mg twice a day. 7. Atorvastatin 40 mg at bedtime. 8. BuSpar 5 mg daily. 9. Metoprolol 25 mg twice a day. 10. Calcium carbonate. 11. Pepcid 20 mg daily. 12. Cholestyramine. 13. Thiamine 100 mg daily. 14. Loperamide. 15. Lexapro 10 mg daily. ALLERGIES: NONE. REVIEW OF SYSTEMS: All other systems reviewed and no complaints reported. PHYSICAL EXAMINATION VITALS: Blood pressure 115/50, pulse 84, temperature 98.9. HEENT: Exam is normal. SKIN: The patient has psoriasis to the scalp and also has candidal intertrigo to the neck, both axilla, groin. She has extensive vesicular bullous lesions to the abdomen, thigh, back, both elbows to the flexural area and to the neck and axilla with small flaccid vesicles and bulla. 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 She also has psoriatic lesions to the anterior knee. The patient is bedbound and weak. She has a stage-II pressure ulcer to the sacrococcygeal area and DTI. ASSESSMENT: Acute onset of sacral bullous lesions, mostly distributed to the flexural area around the elbow, neck, axilla, groin. 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 PLAN: Will do punch biopsy and immunofluorescence study. Consider Diflucan with steroid by ID. Will follow closely. Thank you for this consultation. Job#: [id number] LORENA
== END ==
LOC: NPA 12:22
PROVIDERS: ATTEND Internal Medicine
DX: Z02.89 Encounter for other administrative examinations (principal)